=== PATIENT | female | born 1960 | race Caucasian/White ===

== ENCOUNTER 2021-04-02 14:54 | Emergency (ER) | payer OTHER, SELFPAY ==
[~2021-04-02] VITALS: Ht 162.6 cm; Wt 72.6 kg
[2021-04-02 15:05] VITALS: BP_SYST 149
--- NOTE | 2021-04-02 15:05 | NUR ---
Pt. came in with dorota. flu like symptoms over past 4 days, stated was Covid + 16 days ago, was feeling better and over past 4 days feels sick again, productive cough with yellow sputum, fever, sorethroat, body aches, and MCCOLLUM
--- NOTE | 2021-04-02 17:36 | NUR ---
ALAINA Dickerson in tent examining patient.
[2021-04-02 18:56] LABS: BILIRUBIN,URINE NEGATIVE (NEGATIVE); BLOOD, URINE 2+ (NEGATIVE); COLOR,URINE YELLOW (YELLOW); GLUCOSE,URINE NEGATIVE (NEGATIVE); KETONES,URINE NEGATIVE (NEGATIVE); LEUKOCYTE ESTERASE ,URINE NEGATIVE (NEGATIVE); NITRITE, URINE NEGATIVE (NEGATIVE); PROTEIN URINE TRACE (NEGATIVE); UROBILINOGEN,URINE 0.2 (0.2-1.0)
[2021-04-02 18:57] LABS: CLARITY/URINE SLIGHTLY HAZY (CLEAR)
[2021-04-02 19:19] LABS: BASOPHILS % (AUTO) 0.7 % (0.0-2.0); EOSINOPHILS % (AUTO) 0.7 % (0.0-4.0); HEMATOCRIT 45.6 % (36-48); HEMOGLOBIN 15.4 g/dL (12.0-16.0); LYMPHOCYTES # (AUTO) 1.9 K/uL (1.0-5.5); LYMPHOCYTES % (AUTO) 42.3 % (20.5-51.5); MEAN CORPUSCULAR HEMOGLOBIN 30 pg (27-31); MEAN CORPUSCULAR HGB CONC 34 % (32-36); MEAN CORPUSCULAR VOLUME 89 fL (79.0-98.0); MONOCYTES # (AUTO) 0.5 K/uL (0.0-1.0); MONOCYTES % (AUTO) 11.9 % (1.7-9.3); NEUTROPHILS % (AUTO) 44.4 % (40.0-70.0); PLATELET COUNT (AUTO) 272 K/uL (130-430); RED BLOOD CELL COUNT(AUTO) 5.13 MIL/uL (4.2-6.2); RED CELL DISTRIBUTION WIDTH 13.5 % (9.0-15.0); WHITE BLOOD COUNT (AUTO) 4.4 K/uL (4.8-10.8)
[2021-04-02 19:34] LABS: CALCIUM 9.6 mg/dL (8.4-11.0); CREATININE 0.58 mg/dL (0.55-1.30); POTASSIUM 3.5 mmol/L (3.5-5.1)
[2021-04-02 19:40] LABS: ALBUMIN 4.1 g/dL (3.4-4.8); TOTAL BILIRUBIN 0.4 mg/dL (0.0-1.0)
[2021-04-02 20:40] LABS: BACTERIA,URINE MODERATE /HPF (None Seen); WBC,URINE 0-3 /HPF (0-3)
[2021-04-02 20:41] LABS: MUCUS,URINE 1+ /LPF (None Seen)
[2021-04-02] MEDS ORDERED: cefTRIAXone 1 GM in D5W 50 ML IV ONE ×2 (21:15→21:45)
[2021-04-02] MEDS ORDERED: NACL 0.9% 1,000 ML IV ONE (21:15)
[2021-04-02] MEDS ORDERED: CEFU250T85 PO (21:43)
[2021-04-02] MEDS ORDERED: cefTRIAXone 1 GM VIAL IM ONE (22:00)
[2021-04-02] MEDS ORDERED: LIDOCAINE 1%, 20 ML MDV 20 ML ONE (22:08)
--- NOTE | 2021-04-02 22:15 | NUR ---
Patient given written and verbal discharge instructions and verbalizes understanding. ER MD discussed with patient the results and treatment provided. Patient in stable condition. ID arm band removed. Rx of ceftin given. Patient educated on pain management and to follow up with PMD. Pain Scale 0/10 Opportunity for questions provided and answered. Medication side effect fact sheet provided.
[2021-04-02 23:25] VITALS: BP_SYST 132
== END 2021-04-02 22:15 | disposition home or self-care (01) ==
LOC: SED 14:54
DX: U07.1 COVID-19 (principal); Z79.899 Other long term (current) drug therapy
CPT/HCPCS: 36415; 80053; 81000; 83605; 85025; 86710; 87040; 87086; 87426; 96372; 99283; C9803; J0696; J2001; U0003

== ENCOUNTER 2021-11-13 04:41 | Inpatient (IN) | payer OTHER ==
[~2021-11-13] VITALS: Ht 165.1 cm; Wt 74.4 kg
[~2021-11-13 04:41] MED LIST: CEFU250T85 PO
[2021-11-13 04:48] VITALS: BP_SYST 158
[2021-11-13] MEDS ORDERED: MORPHINE 2 MG/ML INJ. SYRINGE IVP ONE (05:30)
[2021-11-13] MEDS ORDERED: ONDANSETRON HCL 4 MG/2 ML VIAL IVP ONE ×3 (05:30→08:00)
[2021-11-13] MEDS ORDERED: NACL 0.9% 1,000 ML IV ONE (05:30)
[2021-11-13 06:10] LABS: BILIRUBIN,URINE NEGATIVE (NEGATIVE); BLOOD, URINE 2+ (NEGATIVE); CLARITY/URINE CLEAR (CLEAR); COLOR,URINE YELLOW (YELLOW); GLUCOSE,URINE NEGATIVE (NEGATIVE); KETONES,URINE NEGATIVE (NEGATIVE); LEUKOCYTE ESTERASE ,URINE 2+ (NEGATIVE); NITRITE, URINE NEGATIVE (NEGATIVE); PROTEIN URINE NEGATIVE (NEGATIVE); UROBILINOGEN,URINE 0.2 (0.2-1.0)
[2021-11-13 06:19] LABS: BACTERIA,URINE FEW /HPF (None Seen)
[2021-11-13 06:21] LABS: MUCUS,URINE 1+ /LPF (None Seen)
[2021-11-13 06:32] LABS: BASOPHILS # (AUTO) 0.1 K/uL (0.0-0.2); BASOPHILS % (AUTO) 0.4 % (0.0-2.0); EOSINOPHILS % (AUTO) 0.3 % (0.0-4.0); HEMATOCRIT 37.5 % (36-48); HEMOGLOBIN 13.2 g/dL (12.0-16.0); LYMPHOCYTES # (AUTO) 1.1 K/uL (1.0-5.5); LYMPHOCYTES % (AUTO) 9.3 % (20.5-51.5); MEAN CORPUSCULAR HEMOGLOBIN 32 pg (27-31); MEAN CORPUSCULAR HGB CONC 35 % (32-36); MEAN CORPUSCULAR VOLUME 92 fL (79.0-98.0); MONOCYTES # (AUTO) 0.8 K/uL (0.0-1.0); MONOCYTES % (AUTO) 6.8 % (1.7-9.3); NEUTROPHILS % (AUTO) 83.2 % (40.0-70.0); PLATELET COUNT (AUTO) 274 K/uL (130-430); RED BLOOD CELL COUNT(AUTO) 4.09 MIL/uL (4.2-6.2); RED CELL DISTRIBUTION WIDTH 13.5 % (9.0-15.0)
[2021-11-13 06:40] LABS: CALCIUM 9.4 mg/dL (8.4-11.0); CREATININE 0.91 mg/dL (0.55-1.30); POTASSIUM 3.8 mmol/L (3.5-5.1)
[2021-11-13 06:46] LABS: ALBUMIN 3.5 g/dL (3.4-4.8); TOTAL BILIRUBIN 0.3 mg/dL (0.0-1.0)
[2021-11-13] MEDS ORDERED: cefTRIAXone 1 GM in D5W 50 ML IV ONE (07:45)
[2021-11-13] MEDS ORDERED: cefTRIAXone 1 GM VIAL ONE (07:54)
[2021-11-13] MEDS ORDERED: KETOROLAC TROMETHAMINE 30 MG VIAL IVP ONE (08:00)
[2021-11-13] MEDS ORDERED: NACL 0.9% 1,250 ML IV ONE (08:00)
[2021-11-13 13:56] VITALS: BP_SYST 135
[2021-11-13 13:57] VITALS: BP_SYST 135
[2021-11-13] MEDS: D5/0.45 NS 1,000 ML IV SCH ×3 (14:42→21:48)
[2021-11-13] MEDS ORDERED: TAMSULOSIN HCL 0.4 MG CAP PO ONE (15:00)
[2021-11-13 16:00] VITALS: BP_SYST 122
[2021-11-13 21:35] VITALS: BP_SYST 141
[2021-11-13] MEDS: HYDROmorphone 1 MG/ML INJ. CARTRIDGE IVP PRN (21:47)
[2021-11-14 02:13] VITALS: BP_SYST 129
[2021-11-14] MEDS: HYDROmorphone 1 MG/ML INJ. CARTRIDGE IVP PRN ×2 (03:47→08:25)
[2021-11-14] MEDS: D5/0.45 NS 1,000 ML IV SCH ×3 (06:22→22:43)
[2021-11-14 08:00] VITALS: BP_SYST 137
[2021-11-14] MEDS ORDERED: cefTRIAXone 1 GM IVPB PREMIX 50 ML IV SCH (09:00)
[2021-11-14] MEDS: TAMSULOSIN HCL 0.4 MG CAP PO SCH (09:12)
[2021-11-14] MEDS: cefTRIAXone 1 GM IVPB PREMIX 50 ML IV SCH (09:21)
[2021-11-14 09:30] LABS: BASOPHILS # (AUTO) 0.1 K/uL (0.0-0.2); BASOPHILS % (AUTO) 0.5 % (0.0-2.0); EOSINOPHILS # (AUTO) 0.1 K/uL (0.0-0.4); EOSINOPHILS % (AUTO) 0.8 % (0.0-4.0); HEMATOCRIT 37.4 % (36-48); HEMOGLOBIN 13.3 g/dL (12.0-16.0); LYMPHOCYTES # (AUTO) 1.3 K/uL (1.0-5.5); LYMPHOCYTES % (AUTO) 12.5 % (20.5-51.5); MEAN CORPUSCULAR HEMOGLOBIN 33 pg (27-31); MEAN CORPUSCULAR HGB CONC 36 % (32-36); MEAN CORPUSCULAR VOLUME 92 fL (79.0-98.0); MONOCYTES # (AUTO) 0.7 K/uL (0.0-1.0); MONOCYTES % (AUTO) 6.4 % (1.7-9.3); NEUTROPHILS # (AUTO) 8.6 K/uL (1.8-7.7); NEUTROPHILS % (AUTO) 79.8 % (40.0-70.0); PLATELET COUNT (AUTO) 251 K/uL (130-430); RED BLOOD CELL COUNT(AUTO) 4.09 MIL/uL (4.2-6.2); RED CELL DISTRIBUTION WIDTH 13.1 % (9.0-15.0); WHITE BLOOD COUNT (AUTO) 10.7 K/uL (4.8-10.8)
[2021-11-14] MEDS ORDERED: NALOXONE HCL 0.4 MG/ML AMP (NARCAN) IVP PRN ×2 (09:45)
[2021-11-14] MEDS ORDERED: KETOROLAC TROMETHAMINE 15 MG VIAL IVP ONE (09:45)
[2021-11-14] MEDS ORDERED: HYDROcodone/ACETAMIN 5-325 MG TAB (NORCO/ VICODIN) PO PRN ×2 (09:45)
[2021-11-14 12:00] VITALS: BP_SYST 133
[2021-11-14] MEDS ORDERED: KETOROLAC TROMETHAMINE 15 MG VIAL IVP PRN (15:00)
[2021-11-14] MEDS ORDERED: LACTULOSE 20 GM/30 ML UDC PO PRN (15:00)
[2021-11-14] MEDS ORDERED: ONDANSETRON HCL 4 MG/2 ML VIAL IM PRN (15:00)
[2021-11-14] MEDS ORDERED: ACETAMINOPHEN 325 MG TABLET PO PRN (15:00)
[2021-11-14 16:00] VITALS: BP_SYST 135
[2021-11-14] MEDS ORDERED: IBUPROFEN 400 MG TABLET PO PRN (18:45)
[2021-11-14 21:16] VITALS: BP_SYST 148
[2021-11-14] MEDS: DICLOFENAC SODIUM 25 MG TABLET.DR PO SCH (21:16)
[2021-11-15 04:30] VITALS: BP_SYST 127
[2021-11-15] MEDS: D5/0.45 NS 1,000 ML IV SCH (05:41)
[2021-11-15 08:00] VITALS: BP_SYST 152
[2021-11-15 09:20] LABS: CALCIUM 8.9 mg/dL (8.4-11.0); CREATININE 0.63 mg/dL (0.55-1.30); POTASSIUM 3.9 mmol/L (3.5-5.1)
[2021-11-15] MEDS: TAMSULOSIN HCL 0.4 MG CAP PO SCH (09:30)
[2021-11-15] MEDS: DICLOFENAC SODIUM 25 MG TABLET.DR PO SCH (09:31)
[2021-11-15] MEDS: cefTRIAXone 1 GM IVPB PREMIX 50 ML IV SCH (09:33)
[2021-11-15 11:59] LABS: COLLECTION TIME,URINE 24 HR; TOTAL VOLUME 24HRS,URINE 3000 mL
[2021-11-15 12:00] LABS: POTASSIUM TIMED,URINE 13 mmol/L (12-75); POTASSIUM U,24HR CALC 39 mmol/24H (25-150)
[2021-11-15 12:01] LABS: COLLECTION TIME,URINE 24 HR; SODIUM TIMED,URINE 76 mmol/L; SODIUM URINE, 24HR CALC 228 mmol/24H (40-220); TOTAL VOLUME 24HRS,URINE 3000 mL
[2021-11-15 16:00] VITALS: BP_SYST 155
[2021-11-15 16:27] VITALS: BP_SYST 155
[2021-11-15] MEDS ORDERED: ACET325T PO (18:03)
[2021-11-15] MEDS ORDERED: DICL25TA PO (18:03)
[2021-11-15] MEDS ORDERED: TAMS0.4C96 PO (18:03)
[2021-11-15] MEDS ORDERED: POTA15TA11 PO (18:04)
[2021-11-16] MEDS ORDERED: LEVOTHYROXINE SODIUM 0.125 MG TABLET PO SCH (07:00)
== END 2021-11-15 19:10 | disposition home or self-care (01) | DRG 690 ==
LOC: SED 04:41 → SMU 09:49
PROVIDERS: ADMIT Specialist; ATTEND Specialist
DX: N10 Acute pyelonephritis (principal); N13.6 Pyonephrosis; N20.0 Calculus of kidney; Z20.822 Contact with and (suspected) exposure to COVID-19; Z91.041 Radiographic dye allergy status
CPT/HCPCS: 36415; 74018; 76376; 80048; 80053; 81000; 82340; 83605; 84133; 84300-TC; 84560; 85025; 87040; 87086; 96361; 96374; 96375; 99285; J0696; J1170; J1885; J2270; J2405